=== PATIENT | female | born 1995 | race Caucasian/White ===

== ENCOUNTER 2017-01-15 22:00 | Emergency (ER) | payer BC ==
[2017-01-15] MEDS ORDERED: NS 1,000 ML IV ONE (22:21)
--- NOTE | 2017-01-15 22:22 | EDPHY ---
H & P Stated Complaint: abd pain Time Seen by Provider: 01/15/17 22:15 HPI/ROS: CHIEF COMPLAINT: Abdominal cramping HISTORY OF PRESENT ILLNESS: Patient is a 21-year-old female who comes to the emergency department her friend complaining of abdominal cramping. She states that her symptoms began about an hour ago. They persisted until she had an episode of diarrhea here in the waiting room. Now her cramping has resolved. She has not had any nausea or vomiting. She describes the cramping as diffuse. She denies any risk of . No vaginal bleeding or discharge. Her last menstrual period was 2 weeks ago. She denies urinary symptoms. Fevers. No blood in her stool. REVIEW OF SYSTEMS: Constitutional: denies: chills, fever, recent illness, recent injury EENTM: denies: blurred vision, double vision, nose congestion Respiratory: denies: cough, shortness of breath Cardiac: denies: chest pain, irregular heart rate, lightheadedness, palpitations Gastrointestinal/Abdominal: See HPI Genitourinary: denies: dysuria, frequency, hematuria, pain Musculoskeletal: denies: joint pain, muscle pain Skin: denies: lesions, rash, jaundice, bruising Neurological: denies: headache, numbness, paresthesia, tingling, dizziness, weakness Hematologic/Lymphatic: denies: blood clots, easy bleeding, easy bruising Immunologic/allergic: denies: HIV/AIDS, transplant EXAM: GENERAL: Well-appearing, well-nourished and in no acute distress. HEAD: Atraumatic, normocephalic. EYES: Pupils equal round and reactive to light, extraocular movements intact, sclera anicteric, conjunctiva are normal. ENT: TMs normal, nares patent, oropharynx clear without exudates. Moist mucous membranes. NECK: Normal range of motion, supple without lymphadenopathy or JVD. LUNGS: Breath sounds clear to auscultation bilaterally and equal. No wheezes rales or rhonchi. HEART: Regular rate and rhythm without murmurs, rubs or gallops. ABDOMEN: Soft, nontender, normoactive bowel sounds. No guarding, no rebound. No masses appreciated. BACK: No CVA tenderness, no spinal tenderness, step-offs or deformities EXTREMITIES: Normal range of motion, no pitting or edema. No clubbing or cyanosis. NEUROLOGICAL: Cranial nerves II through XII grossly intact. Normal speech, normal gait. 5/5 strength, normal movement in all extremities, normal sensation PSYCH: Normal mood, normal affect. SKIN: Warm, dry, normal turgor, no visible rashes or lesions. Source: Patient Exam Limitations: No limitations - Personal History LMP (Females 10-55): 8-14 Days Ago Current Tetanus/Diphtheria Vaccine: Yes - Medical/Surgical History Hx Asthma: No Hx Chronic Respiratory Disease: No Hx Diabetes: No Hx Cardiac Disease: No Hx Renal Disease: No Hx Cirrhosis: No Hx Alcoholism: No Hx HIV/AIDS: No Hx Splenectomy or Spleen Trauma: No Other PMH: PMHx: denies. PSHx: wisdom tooth extraction - Family History Significant Family History: No pertinent family hx - Social History Smoking Status: Unknown if ever smoked Alcohol Use: Sober Drug Use: None Constitutional: Initial Vital Signs Temperature (C) 36.9 C 01/15/17 22:01 Heart Rate 86 01/15/17 22:01 Respiratory Rate 16 01/15/17 22:01 Blood Pressure 126/74 H 01/15/17 22:01 O2 Sat (%) 98 01/15/17 22:01 O2 Delivery Mode Room Air Allergies/Adverse Reactions: No Known Allergies Allergy (Unverified 05/19/16 01:55) Home Medications: Medication Instructions Recorded Control 07/07/16 Medical Decision Making ED Course/Re-evaluation: 11:55 p.m. the patient is feeling completely well. She denies abdominal pain. Abdominal exam is benign. She is eager to go home and declines any medications. Discussed her lab work which is reassuring. We discussed indications for returning. Differential Diagnosis: Partial list of the Differential diagnosis considered include but were not limited to; gastritis, food poisoning, diarrhea and although unlikely based on the history and physical exam, I also considered appendicitis, diverticulitis, biliary disease, pancreatitis, peptic ulcer disease. I discussed these differential diagnoses and the plan with the patient as well as the usual and expected course. The patient understands that the diagnosis is provisional and that in medicine we are not always correct and that further workup is often warranted. Usual and customary warnings were given. All of the patient's questions were answered. The patient was instructed to return to the emergency department should the symptoms at all worsen or return, otherwise to followup with the physician as we discussed. - Data Points Laboratory Results: Laboratory Results 01/15/17 22:22 01/15/17 22:22 01/15/17 01/15/17 01/15/17 23:25 22:22 22:22 WBC RBC Hgb Hct MCV MCH MCHC RDW Plt Count MPV Neut % (Auto) Lymph % (Auto) Tyrrell % (Auto) Eos % (Auto) Baso % (Auto) Nucleat RBC Rel Count Absolute Neuts (auto) Absolute Lymphs (auto) Absolute Monos (auto) Absolute Eos (auto) Absolute Basos (auto) Absolute Nucleated RBC Immature Gran % Immature Gran # Sodium 132 mEq/L L mEq/L (134-144) Potassium 3.9 mEq/L mEq/L (3.5-5.2) Chloride 101 mEq/L mEq/L (97-110) Carbon Dioxide 22 mEq/l mEq/l (22-31) Anion Gap 9 mEq/L mEq/L (8-16) BUN 8 mg/dL mg/dL (7-23) Creatinine 0.6 mg/dL mg/dL (0.6-1.0) Estimated GFR > 60 Glucose 98 mg/dL mg/dL (70-100) Calcium 9.2 mg/dL mg/dL (8.5-10.4) Total Bilirubin 0.6 mg/dL mg/dL (0.1-1.4) Conjugated Bilirubin 0.4 mg/dL mg/dL (0.0-0.5) Unconjugated Bilirubin 0.2 mg/dL mg/dL (0.0-1.1) AST 26 IU/L IU/L (14-46) ALT 29 IU/L IU/L (9-52) Alkaline Phosphatase 66 IU/L IU/L (38-126) Total Protein 7.3 g/dL g/dL (6.3-8.2) Albumin 4.0 g/dL g/dL (3.5-5.0) Lipase 72.0 IU/L IU/L (23-300) Beta HCG, Qual NEGATIVE Urine Color YELLOW Urine Appearance CLEAR Urine pH 6.0 (5.0-7.5) Ur Specific Florence 1.006 (1.002-1.030) Urine Protein NEGATIVE (NEGATIVE) Urine Ketones NEGATIVE (NEGATIVE) Urine Blood 1+ H (NEGATIVE) Urine Nitrate NEGATIVE (NEGATIVE) Urine Bilirubin NEGATIVE (NEGATIVE) Urine Urobilinogen NEGATIVE EU EU (0.2-1.0) Ur Leukocyte Esterase NEGATIVE (NEGATIVE) Urine RBC 1-3 /hpf /hpf (0-3) Urine WBC 1-3 /hpf /hpf (0-3) Ur Epithelial Cells TRACE /lpf /lpf (NONE-1+) Urine Mucus TRACE /lpf /lpf (NONE-1+) Urine Glucose NEGATIVE (NEGATIVE) 01/15/17 22:22 WBC 9.37 10^3/uL 10^3/uL (3.80-9.50) RBC 4.41 10^6/uL 10^6/uL (4.18-5.33) Hgb 12.6 g/dL g/dL (12.6-16.3) Hct 37.0 % L % (38.0-47.0) MCV 83.9 fL fL (81.5-99.8) MCH 28.6 pg pg (27.9-34.1) MCHC 34.1 g/dL g/dL (32.4-36.7) RDW 14.6 % % (11.5-15.2) Plt Count 219 10^3/uL 10^3/uL (150-400) MPV 9.6 fL fL (8.7-11.7) Neut % (Auto) 72.7 % % (39.3-74.2) Lymph % (Auto) 18.8 % % (15.0-45.0) Tyrrell % (Auto) 6.5 % % (4.5-13.0) Eos % (Auto) 1.3 % % (0.6-7.6) Baso % (Auto) 0.3 % % (0.3-1.7) Nucleat RBC Rel Count 0.0 % % (0.0-0.2) Absolute Neuts (auto) 6.81 10^3/uL H 10^3/uL (1.70-6.50) Absolute Lymphs (auto) 1.76 10^3/uL 10^3/uL (1.00-3.00) Absolute Monos (auto) 0.61 10^3/uL 10^3/uL (0.30-0.80) Absolute Eos (auto) 0.12 10^3/uL 10^3/uL (0.03-0.40) Absolute Basos (auto) 0.03 10^3/uL 10^3/uL (0.02-0.10) Absolute Nucleated RBC 0.00 10^3/uL 10^3/uL (0-0.01) Immature Gran % 0.4 % % (0.0-1.1) Immature Gran # 0.04 10^3/uL 10^3/uL (0.00-0.10) Sodium Potassium Chloride Carbon Dioxide Anion Gap BUN Creatinine Estimated GFR Glucose Calcium Total Bilirubin Conjugated Bilirubin Unconjugated Bilirubin AST ALT Alkaline Phosphatase Total Protein Albumin Lipase Beta HCG, Qual Urine Color Urine Appearance Urine pH Ur Specific Florence Urine Protein Urine Ketones Urine Blood Urine Nitrate Urine Bilirubin Urine Urobilinogen Ur Leukocyte Esterase Urine RBC Urine WBC Ur Epithelial Cells Urine Mucus Urine Glucose Medications Given: Discontinued Medications Sodium Chloride (Ns) 1,000 mls @ 0 mls/hr IV ONCE ONE PRN Reason: Wide Open Stop: 01/15/17 22:22 Last Admin: 01/15/17 22:31 Dose: 1,000 mls Departure - Departure Disposition: Home, Routine, Self-Care Clinical Impression: Abdominal pain Qualifiers: Abdominal location: generalized Qualified Code(s): R10.84 - Generalized abdominal pain Diarrhea Qualifiers: Diarrhea type: unspecified type Qualified Code(s): R19.7 - Diarrhea, unspecified Condition: Fair Instructions: Acute Diarrhea (ED), Abdominal Pain (ED) Referrals: NONE *PRIMARY CARE P,. [Primary Care Provider] - As per Instructions [facility] [Cl[facility]] - As per Instructions
[2017-01-15 22:39] LABS: % IMMATURE GRANULYOCYTES 0.4 % (0.0-1.1); ABSOLUTE IMMATURE GRANULOCYTES 0.04 10^3/uL (0.00-0.10); ADD DIFF? NO; ADD MORPH? NO; ADD SCAN? NO; ATYPICAL LYMPHOCYTE FLAG 30 (0-99); FRAGMENT RBC FLAG 0 (0-99); HEMOGLOBIN 12.6 g/dL (12.6-16.3); LEFT SHIFT FLG 30 (0-99); LIPEMIA HEMOLYSIS FLAG 90 (0-99); MEAN CELL HEMOGLOBIN 28.6 pg (27.9-34.1); MEAN CELL HEMOGLOBIN CONCENTR. 34.1 g/dL (32.4-36.7); MEAN CELL VOLUME 83.9 fL (81.5-99.8); MEAN PLATELET VOLUME 9.6 fL (8.7-11.7); PLATELET CLUMPS FLAG 0 (0-99); PLATELET COUNT 219 10^3/uL (150-400); RED BLOOD CELL COUNT 4.41 10^6/uL (4.18-5.33); RED CELL DISTRIBUTION WIDTH 14.6 % (11.5-15.2)
[2017-01-15 22:53] LABS: ALANINE AMINOTRANSFERASE 29 IU/L (9-52); ALKALINE PHOSPHATASE 66 IU/L (38-126); ANION GAP 9 mEq/L (8-16); ASPARTATE AMINOTRANSFERASE 26 IU/L (14-46); BILIRUBIN,TOTAL 0.6 mg/dL (0.1-1.4); BILIRUBIN-CONJUGATED 0.4 mg/dL (0.0-0.5); BILIRUBIN-UNCONJUGATED 0.2 mg/dL (0.0-1.1); CALCIUM 9.2 mg/dL (8.5-10.4); CARBON DIOXIDE 22 mEq/l (22-31); CHLORIDE 101 mEq/L (97-110); CREATININE 0.6 mg/dL (0.6-1.0); GLOMERULAR FILTRATION RATE > 60; GLUCOSE 98 mg/dL (70-100); POTASSIUM 3.9 mEq/L (3.5-5.2); SODIUM 132 mEq/L (134-144); TOTAL PROTEIN 7.3 g/dL (6.3-8.2)
[2017-01-15 23:35] LABS: COLOR YELLOW; LEUKOCYTE ESTERASE,URINE NEGATIVE (NEGATIVE); NITRITE,URINE NEGATIVE (NEGATIVE)
[2017-01-15 23:41] LABS: MUCUS TRACE /lpf (NONE-1+)
[2017-01-16 00:08] VITALS: BP 128/64; PULSE 93; RESP 20; TEMP 97.9; O2SAT 99
== END 2017-01-16 00:08 | disposition home or self-care (01) ==
DX: R10.84 Generalized abdominal pain (principal); R19.7 Diarrhea, unspecified

== ENCOUNTER 2017-05-10 23:53 | Emergency (ER) | payer BC ==
[2017-05-11 00:03] VITALS: TEMP 98.1
--- NOTE | 2017-05-11 00:59 | EDPHY ---
H & P Stated Complaint: ETOH tonight, pt non verbal awakens to sternal rub Source: Patient Exam Limitations: No limitations - Personal History LMP (Females 10-55): Unknown Current Tetanus Diphtheria and Acellular Pertussis (TDAP): Unsure - Medical/Surgical History Hx Asthma: No Hx Chronic Respiratory Disease: No Hx Diabetes: No Hx Cardiac Disease: No Hx Renal Disease: No Hx Cirrhosis: No Hx Alcoholism: No Hx HIV/AIDS: No Hx Splenectomy or Spleen Trauma: No Other PMH: PMHx: denies. PSHx: wisdom tooth extraction - Social History Smoking Status: Unknown if ever smoked HPI/ROS: CHIEF COMPLAINT: Alcohol intoxication HISTORY OF PRESENT ILLNESS: Patient presents with 2 friends. They report that they have been drinking today. They said that the patient was drinking straight vodka for 3 hours and became heavily intoxicated. They were worried about her due to her level of intoxication. No specific complaints other than the acute alcohol intoxication. They report that she does drink frequently. She has been evaluated in the emergency department in the past for acute alcohol intoxication. No prior medical history. No other associated complaints or modifying factors. REVIEW OF SYSTEMS: Ten systems reviewed and are negative unless otherwise noted in the HPI PAST MEDICAL HISTORY: Denies any medical history per SOCIAL HISTORY: Student at [employer]. Frequent alcohol use FAMILY HISTORY: Noncontributory EXAMINATION General Appearance: Alert, no distress, somnolent Head: normocephalic, atraumatic Eyes: Pupils equal and round, no conjunctival pallor or injection. EOMs intact ENT, Mouth: Mucous membranes moist. Airway widely patent Neck: Normal inspection, supple, non-tender Respiratory: Lungs are clear to auscultation. No wheezing, rhonchi or crackles Cardiovascular: Regular rate and rhythm. No murmur Gastrointestinal: Abdomen is soft and nontender Back: non-tender, no bony abnormalities Neurological: Alert to person. Unable to determine if she is alert to place and time and she will not answer my questions. She is opening her eyes spontaneously. She is moving extremities spontaneously. Gag reflex is intact. Skin: Warm and dry, no rash. No lacerations abrasions or contusions Extremities: Nontender, no pedal edema Psychiatric: Appears acutely intoxicated DIFFERENTIAL DIAGNOSES: Including but not limited to acute alcohol intoxication, alcohol poisoning, respiratory distress, dehydration, chronic alcohol abuse, alcohol dependency MDM: 12:50 a.m. Acute alcohol intoxication. No airway compromise. Gag reflex intact. Protecting her airway without assistance. No need for supplemental oxygen. No distress. She is not yet able to ambulate without assistance, and we will monitor her. No intervention necessary at this time. She does have 2 friends with her at bedside that were with her today. 1:00 a.m. At this time I have discussed the case with Dr. Chou. She will assume care the patient. Please see her note for final disposition. SUPERVISION: Patient was evaluated in conjunction with the supervising physician. Please see their note for details. (Markel Sun) Constitutional: Initial Vital Signs Temperature (C) 36.7 C 05/11/17 00:00 Heart Rate 86 05/11/17 00:00 Respiratory Rate 16 05/11/17 00:00 Blood Pressure 86/46 L 05/11/17 00:00 O2 Sat (%) 94 05/11/17 00:00 O2 Delivery Mode Room Air Allergies/Adverse Reactions: No Known Allergies Allergy (Unverified 05/19/16 01:55) Home Medications: Medication Instructions Recorded Control 07/07/16 Medical Decision Making Other Provider: ED PA DICTATION I evaluated and participated in the management of the patient. I also evaluated the patient independently. My co-signature indicates that I have reviewed this chart and I agree with the findings and plan of care as documented. My personal H&P findings include: This is a 21-year-old female who presents with alcohol intoxication. Within several hours of being in the emergency room, she was able to walk with a steady gait and was [facility]. (Rebekah Chou) Departure - Departure Disposition: Home, Routine, Self-Care Clinical Impression: Acute alcohol intoxication Qualifiers: Complication of substance-induced condition: uncomplicated Qualified Code(s): F10.929 - Alcohol use, unspecified with intoxication, unspecified Condition: Good Instructions: Alcohol Intoxication (ED), At-Risk Alcohol Use (ED) Referrals: Patient,NotPresent [Unknown] - As per Instructions Mireille Erwin MD [Medical Doctor] - As per Instructions [facility]. [Clinic] - As per Instructions
[2017-05-11 02:48] VITALS: BP 118/88; PULSE 99; RESP 18; O2SAT 98
== END 2017-05-11 02:48 | disposition home or self-care (01) ==
DX: F10.929 Alcohol use, unspecified with intoxication, unspecified (principal)

== ENCOUNTER 2018-06-01 17:13 | Emergency (ER) | payer BC, OTHER ==
--- NOTE | 2018-06-01 17:48 | EDPHY ---
H & P Time Seen by Provider: 06/01/18 17:38 HPI/ROS: Chief complaint. Head injury HPI. 22-year-old female drinking alcohol fell out of a chair striking her head on concrete floor. She denies loss of consciousness however she says she does not remember the fall or getting upper subsequent events. She then had multiple episodes of vomiting about 30 min later. She does have a headache. Does not have bump to her head. Denies any other injuries. She tells me she has no neck or back or chest or abdominal pain. No injury to arms legs. She tells me she never throws up. ROS 10 systems were reviewed and negative with the exception of the elements mentioned in the history of present illness Past Medical/Surgical History: Multiple visits for alcohol intoxication Social History: Single, nonsmoker, recent alcohol Smoking Status: Unknown if ever smoked Physical Exam: General Appearance: Alert, intoxicated well-developed female mild distress vital signs significant for heart rate 103 Eyes: Pupils equal and round no pallor or injection. ENT, no hemotympanum or Ortega sign. No oral pharyngeal or dental trauma. No obvious bumps to her head. Respiratory: There are no retractions, lungs are clear to auscultation. Cardiovascular: Regular rate and rhythm. Gastrointestinal: Abdomen is soft and nontender, no masses, bowel sounds normal. Neurological: Awake and alert, sensory and motor exams grossly normal. Skin: Warm and dry, no rashes. Musculoskeletal: Neck is supple nontender. T, L, S spine is nontender. Extremities symmetrical, full range of motion. Psychiatric: Patient is oriented X 3, there is no agitation. Constitutional: Initial Vital Signs Temperature (C) 36.6 C 06/01/18 17:21 Heart Rate 103 H 06/01/18 17:21 Respiratory Rate 18 06/01/18 17:21 Blood Pressure 119/86 H 06/01/18 17:21 O2 Sat (%) 94 06/01/18 17:21 O2 Delivery Mode Room Air Allergies/Adverse Reactions: amoxicillin Allergy (Verified 06/01/18 17:20) Penicillins Allergy (Verified 06/01/18 17:20) Home Medications: Medication Instructions Recorded Control 16 Medical Decision Making - Diagnostics Imaging Results: Imaging Impressions Head CT 06/01/18 17:52 Impression: 1. There is no acute intracranial abnormality identified on this unenhanced CT evaluation. 2. Likely-benign osteolucent defect associated with the inner table of the right calvarium, perhaps representing localized pacchionian granulation, although otherwise nonspecific. One could consider follow-up conventional radiography of the skull in 6 months to assure stability. If there is further clinical concern regarding the patient's symptoms, MR imaging is suggested, if not otherwise contraindicated. Findings were discussed with MARVIN KUHN MD at 19:25, on 06/01/2018. Noncontrast head CT interpreted by me and discussed with Radiology is normal ED Course/Re-evaluation: Re-evaluation patient is stable. She is ambulatory in the department. She and I discussed imaging and lab results. We discussed treatment plan including criteria for return importance of follow-up further evaluation. She expresses understanding and agreement Differential Diagnosis: Alcohol intoxication and I considered closed head injury skull fracture and intracranial bleeding. - Data Points Laboratory Results: 06/01/18 06/01/18 18:15 18:15 Beta HCG, Qual NEGATIVE Ethyl Alcohol 314 mg/dL H mg/dL (0-10) Departure - Departure Disposition: Home, Routine, Self-Care Clinical Impression: Alcoholic intoxication Qualifiers: Complication of substance-induced condition: with unspecified complication Qualified Code(s): F10.929 - Alcohol use, unspecified with intoxication, unspecified Concussion Qualifiers: Encounter type: initial encounter Loss of consciousness presence/duration: without LOC Qualified Code(s): S06.0X0A - Concussion without loss of consciousness, initial encounter Condition: Good Instructions: Alcohol Intoxication (ED), Concussion (ED) Additional Instructions: Do not drink anymore alcohol tonight. Return for worsening symptoms. Recheck at [facility] in 2-3 days. Referrals: NONE *PRIMARY CARE P,. [Primary Care Provider] - As per Instructions [facility] [Outside] - 2-3 days without fail
[2018-06-01 20:10] VITALS: BP 110/78
== END 2018-06-01 20:10 | disposition home or self-care (01) ==
DX: S06.0X0A Concussion without loss of consciousness, initial encounter (principal); F10.129 Alcohol abuse with intoxication, unspecified; Y90.8 Blood alcohol level of 240 mg/100 ml or more; W07.XXXA Fall from chair, initial encounter
CPT/HCPCS: G0480

== ENCOUNTER 2018-08-15 02:08 | Emergency (ER) | payer OTHER ==
--- NOTE | 2018-08-15 02:13 | EDPHY ---
H & P Time Seen by Provider: 08/15/18 02:12 HPI/ROS: Chief Complaint: Alcohol intoxication HPI: 23-year-old brought in intoxicated from a constitution party. Patient was found passed out after drinking at least 10 shots of hard liquor this morning. Per bystanders apparently shunt did reportedly fall backwards from a seated position in hit her head. Per EMS she has been awake, slurring her words, smells strongly of alcohol. No emesis. No obvious signs of trauma. ROS: Unobtainable secondary to the patient's intoxication PMH: Unknown Social History: No smoking, occasional alcohol Family History: non-contributory Physical Exam: Gen: Awake, Alert, smells strongly of alcohol HEENT: Nose: no rhinorrhea Eyes: PERRLA, EOMI Mouth: Moist mucosa Neck: Supple, no JVD Chest: nontender, lungs clear to auscultation Heart: S1, S2 normal, no murmur Abd: Soft, non-tender, no guarding Back: no CVA tenderness, no midline tenderness Ext: no edema, non-tender Skin: no rash Neuro: CN II-XII intact, Sensation grossly intact, Strength 5/5 in bilateral upper and lower extremities - Medical/Surgical History Hx Asthma: No Hx Chronic Respiratory Disease: No Hx Diabetes: No Hx Cardiac Disease: No Hx Renal Disease: No Hx Cirrhosis: No Hx Alcoholism: No Hx HIV/AIDS: No Hx Splenectomy or Spleen Trauma: No Other PMH: PMHx: denies. PSHx: wisdom tooth extraction - Social History Smoking Status: Unknown if ever smoked Constitutional: Initial Vital Signs Temperature (C) 36.6 C 08/15/18 02:10 Heart Rate 120 H 08/15/18 02:10 Respiratory Rate 18 08/15/18 02:10 Blood Pressure 114/80 08/15/18 02:10 O2 Sat (%) 95 08/15/18 02:10 O2 Delivery Mode Room Air Allergies/Adverse Reactions: amoxicillin Allergy (Verified 06/01/18 17:20) Penicillins Allergy (Verified 06/01/18 17:20) Home Medications: Medication Instructions Recorded Control 07/07/16 Medical Decision Making ED Course/Re-evaluation: 0215 limited trauma stood down by me. Patient intoxicated. Plan will be to check her alcohol level and observed. Patient is now awake. She is ambulating unassisted. She is not vomiting. I have counseled her that given her multiple visits to this Emergency Department for for alcohol intoxication that she likely has a significant problem with alcohol in she needs to seek treatment to discontinue drinking. [facility] for [facility] care. - Data Points Laboratory Results: 08/15/18 02:18 Ethyl Alcohol 467 mg/dL H* mg/dL (0-10) Medications Given: Discontinued Medications Sodium Chloride (Ns) 1,000 mls @ 0 mls/hr IV ONCE ONE; Wide Open PRN Reason: Protocol Stop: 08/15/18 02:15 Last Admin: 08/15/18 02:30 Dose: 1,000 mls Departure - Departure Disposition: Home, Routine, Self-Care Clinical Impression: Alcoholic intoxication Condition: Good Instructions: Alcohol Intoxication (ED) Referrals: Patient,NotPresent [Primary Care Provider] - As per Instructions
[2018-08-15] MEDS ORDERED: NS 1,000 ML IV ONE (02:14)
[2018-08-15 07:28] VITALS: BP 112/93
== END 2018-08-15 07:35 ==
LOC: EDBD → EDUNIT#
DX: F10.920 Alcohol use, unspecified with intoxication, uncomplicated (principal); E86.9 Volume depletion, unspecified
CPT/HCPCS: G0480